=== PATIENT | female | born 1975 | race Two or more races ===

== ENCOUNTER 2018-09-10 05:57 | Day surgery (SDC) | payer OTHER ==
[~2018-09-10] VITALS: Ht 149.9 cm; Wt 54.9 kg
[~2018-09-10 05:57] MED LIST: CHOL50007 PO; METF-370 PO
[2018-09-10] MEDS ORDERED: LIDOCAINE 1% HCL (LOCAL ANESTH.) INJ 20ML MDV ONE (06:45)
[2018-09-10] MEDS ORDERED: BUPIVACAINE 0.25% INJ 50ML VIAL ONE (06:45)
[2018-09-10] MEDS ORDERED: BUPIVACAINE W/ EPINEPH 0.25% INJ 50ML MDV ONE (06:45)
[2018-09-10] MEDS ORDERED: ENOXAPARIN SOD 40 MG/0.4 ML SYRINGE SC ONE (06:45)
[2018-09-10] MEDS ORDERED: LIDOCAINE W/ EPINEPHRINE 1 % INJ 30ML ONE (06:45)
[2018-09-10] MEDS ORDERED: MIDAZOLAM HCL 1MG/1ML-2 ML VIAL ONE (07:32)
[2018-09-10] MEDS ORDERED: fentaNYL CITRATE 100 MCG/2 ML VL ONE (07:32)
[2018-09-10] MEDS ORDERED: PROPOFOL 10 MG/ML 20 ML IV ONE (07:33)
[2018-09-10] MEDS ORDERED: ONDANSETRON HCL 4 MG/2 ML VIAL IV ONE ×2 (08:15→09:30)
[2018-09-10] MEDS ORDERED: ePHEDrine SULFATE 50 MG/ML AMP IV PRN ×2 (08:15→09:30)
[2018-09-10] MEDS ORDERED: hydrALAZINE HCL 20 MG/ML VL IV PRN ×2 (08:15→09:30)
[2018-09-10 08:35] VITALS: BP 114/84
[2018-09-10] MEDS ORDERED: fentaNYL CITRATE 100 MCG/2 ML VL IV ONE ×2 (09:00→10:00)
== END 2018-09-10 08:40 | disposition home or self-care (01) ==
LOC: SUR 05:57
DX: D17.1 Benign lipomatous neoplasm of skin and subcutaneous tissue of trunk (principal); E11.9 Type 2 diabetes mellitus without complications; Z79.84 Long term (current) use of oral hypoglycemic drugs; Z79.899 Other long term (current) drug therapy
CPT/HCPCS: 21930; 82962; J2001; J2250; J2704; J3010; J3490